=== PATIENT | female | born 1960 | race Caucasian/White ===

== ENCOUNTER → 2020-01-10 | Outpatient (CLI) | payer SELFPAY ==
--- NOTE | 2020-01-10 15:32 | BD ---
EXAMINATION TYPE: Axial Bone Density DATE OF EXAM: 01/10/2020 COMPARISON: NONE CLINICAL HISTORY: Height: 5 FT 8 IN Weight: 154 FRAX RISK QUESTIONS: Alcohol (3 or more units per day): NO Family History (Parent hip fracture): NO Glucocorticoids (More than 3mos): NO (Ex: prednisone, prednisolone, methylprednisolone, dexamethasone, and hydrocortisone). History of Fracture in Adulthood: NO Secondary Osteoporosis: 1. Type 1 Diabetes: NO 2. Hyperthyroidism: NO 3. Menopause before 45: NO 4. Malnutrition: NO 5. Chronic liver disease: NO Rheumatoid Arthritis: NO Current Tobacco Use: NO RISK FACTORS HISTORY OF: Family History of Osteoporosis: NO Active: YES Postmenopausal woman: AGE 52 MEDICATIONS: Thyroid Medications: YES Which medication: LEVOTHYROXINE How Long: APPROX 8 YEARS Additional Medications: LEVOTHYROXINE,LOSARTIN, AMLODIPINE, Additional History: EXAM MEASUREMENTS: Bone mineral densitometry was performed using the [employer] System. Bone mineral density as measured about the Lumbar spine is: ----- L1-L4(G/cm2): 1.161 T Score Values are as follows: ----- L2: -0.5 ----- L3: 0.3 ----- L4: 0.4 ----- L1-L4: -0.2 BASELINE Bone mineral density about the R hip (g/cm2): 0.846 Bone mineral density about the L hip (g/cm2): 0.820 T Score values are as follows: -----R Neck: -1.4 -----L Neck: -1.6 -----R Total: -1.4 -----L Total: -1.8 BASELINE IMPRESSION: Osteopenia (T Score between -2.5 and -1). There is slightly increased risk of fracture and the patient may be considered for treatment. Re-Screen 2-5 years. NOTE: T-SCORE=SD OF THE YOUNG ADULT MEAN.
== END | disposition home or self-care (01) ==
LOC: RADBDWWP 07:50
PROVIDERS: ATTEND Internal Medicine
DX: M85.88 Other specified disorders of bone density and structure, other site (principal)
CPT/HCPCS: 77080

== ENCOUNTER → 2021-12-28 | Outpatient (CLI) | payer SELFPAY ==
--- NOTE | 2021-12-28 15:48 | BD ---
EXAMINATION TYPE: Axial Bone Density DATE OF EXAM: 12/28/2021 COMPARISON: DEXA bone scan 2019 CLINICAL HISTORY: 61 years year old Female. ICD-10 CODE: M810 AGE RELATED OSTEOPOROSIS Height: 67 Weight: 156.8 FRAX RISK QUESTIONS: Alcohol (3 or more units per day): YES Family History (Parent hip fracture): NO Glucocorticoids (More than 3mos): NO History of Fracture in Adulthood: NO Secondary Osteoporosis: 1. Type 1 Diabetes: NO 2. Hyperthyroidism: NO 3. Menopause before 45: NO 4. Malnutrition:NO 5. Chronic liver disease: NO Rheumatoid Arthritis: NO Current Tobacco Use: NO RISK FACTORS HISTORY OF: Hip Fracture (Right/Left): NO Spine Fracture: NO History of Wrist Fracture: NO Surgery to Spine/Hip(right/left)/Wrist (right/left): Family History of Osteoporosis: NO Active: YES Diet low in dairy products/other sources of calcium: NO Postmenopausal woman: NO Take estrogen and/or progesterone medications: NO Lost more than 2 inches in height since high school: NO Frequent falls: NO Poor Health: NO Hyperparathyroidism: NO Adrenal Insufficiency: NO MEDICATIONS: Prednisone or other steroids: NO Thyroid Medications: SYNTHROID How Long: PAST 15-20 YEARS Osteoporosis Medications: NO Additional Medications: LOSARTAN,AMLODIPINE, LEVOTHYROXIN, CALCIUM, EXAM MEASUREMENTS: Bone mineral densitometry was performed using the [employer] System. Bone mineral density as measured about the Lumbar spine is: ----- L1-L4(G/cm2): 1.140 T Score Values are as follows: ----- L1: -1.5 ----- L2: -0.7 ----- L3: 0.2 ----- L4: 0.1 ----- L1-L4: -0.3 BASELINE STUDY-01/10/2020 IMAGES ARE NOT AVAILABLE. Bone mineral density about the R hip (g/cm2): 0.809 Bone mineral density about the L hip (g/cm2): 0.740 T Score values are as follows: -----R Neck: -1.6 -----L Neck: -2.1 -----R Total: -1.6 -----L Total: -2.3 BASELINE STUDY FRAX%s: The graph provided illustrates a 12.9%chance for a major osteoporotic fx and a 2.4%chance fo r the hips probability fx in 10 years time. IMPRESSION: Osteopenia (T Score between -2.5 and -1) remains present. There is slightly increased risk of fracture and the patient may be considered for treatment. Re-Screen 2-5 years. NOTE: T-SCORE=SD OF THE YOUNG ADULT MEAN.
--- NOTE | 2021-12-29 08:06 | MM ---
Reason for Exam: Screening (asymptomatic). Last screening mammogram was performed 12 month(s) ago. Patient History: Menarche at age 10. Patient has no children. Postmenopausal. Patient used Hormonal Contraceptives for 20 years. Benign Cyst Aspiration on the right side. Paternal grandmother had breast cancer, age 40. Mother had breast cancer, age 66. Risk Values: Tiarra 5 year model risk: 3.2%. NCI Lifetime model risk: 14.8%. Prior Study Comparison: 01/10/2019 Bilateral Screening Mammogram, LOCATED WITHIN [facility]. 01/14/2020 Bilateral Screening Mammogram, LOCATED WITHIN [facility]. 01/14/2021 Bilateral Screening Mammogram, LOCATED WITHIN [facility]. Tissue Density: There are scattered fibroglandular densities. Findings: Analyzed By CAD. There is no suspicious group of microcalcifications or new suspicious mass in either breast. Overall Assessment: Negative, BI-RAD 1 Management: Screening Mammogram of both breasts in 1 year. A clinical breast exam by your physician is recommended on an annual basis and results should be correlated with mammographic findings. [facility] will attempt to contact patient to return for supplemental views and ultrasound if indicated. Electronically signed and approved by: Flynn Hernandez DO
== END | disposition home or self-care (01) ==
LOC: RADMAMWWP 14:49
PROVIDERS: ATTEND Internal Medicine
DX: Z12.31 Encounter for screening mammogram for malignant neoplasm of breast (principal); M85.89 Other specified disorders of bone density and structure, multiple sites
CPT/HCPCS: 77063; 77067; 77080

== ENCOUNTER → 2022-08-15 | Outpatient (CLI) | payer MEDICAID ==
--- NOTE | 2022-08-15 11:25 | US ---
EXAMINATION TYPE: US venous doppler duplex LE LT DATE OF EXAM: 08/15/2022 11:14 AM COMPARISON: NONE CLINICAL INDICATION: Female, 62 years old with history of I80.9 LLE PHLEBITIS AND THROMBOPHLEBITIS; L eft total knee, pain SIDE PERFORMED: Left TECHNIQUE: The lower extremity deep venous system is examined utilizing real time linear array sonog meir with graded compression, doppler sonography and color-flow sonography. VESSELS IMAGED: Common Femoral Vein Deep Femoral Vein Greater Saphenous Vein * Femoral Vein Popliteal Vein Small Saphenous Vein * Proximal Calf Veins (* superficial vessels) Left Leg: Negative for DVT Results called to Kristie at Dr's office at time of exam IMPRESSION: No evidence of DVT.
== END | disposition home or self-care (01) ==
LOC: RADUSWWP 10:52
PROVIDERS: ATTEND Orthopaedic Surgery
DX: I80.9 Phlebitis and thrombophlebitis of unspecified site (principal); M17.12 Unilateral primary osteoarthritis, left knee; M23.201 Derangement of unspecified lateral meniscus due to old tear or injury, left knee; M23.612 Other spontaneous disruption of anterior cruciate ligament of left knee; M23.622 Other spontaneous disruption of posterior cruciate ligament of left knee; Z96.652 Presence of left artificial knee joint; Z47.1 Aftercare following joint replacement surgery